=== PATIENT | female | born 1975 | race Caucasian/White ===

== ENCOUNTER 2018-06-16 11:32 | Outpatient (CLI) | payer OTHER ==
--- NOTE | 2018-06-16 13:01 | ULT ---
VENOUS DOPPLER ULTRASOUND OF THE LEFT LOWER EXTREMITY: HISTORY: Left leg pain and edema. TECHNIQUE: Moss scale ultrasound with color flow and spectral Doppler imaging of the deep venous system of the l eft lower extremity was performed. FINDINGS: There is good flow, compression, and augmentation noted in the left common femoral, femoral, deep fem oral, popliteal, posterior tibial, and greater saphenous veins. IMPRESSION: No evidence of deep vein thrombosis in the left lower extremity. POS: C
== END 2018-06-16 11:33 | disposition home or self-care (01) ==
LOC: ULT 11:32
PROVIDERS: ATTEND Family Medicine
DX: M79.662 Pain in left lower leg (principal)

== ENCOUNTER 2018-08-05 09:06 | Outpatient (CLI) | payer OTHER ==
--- NOTE | 2018-08-05 09:57 | MRI ---
EXAM: Left knee MRI without contrast: HISTORY: Left knee effusion, left knee anterior pain COMPARISON: None FINDINGS: Multiplanar, multisequence MRI examination of the knees performed. No evidence for significant joint effusion. Very minimal cartilage thinning. Medial meniscus: Minimal intrasubstance degenerative signal without tear. Lateral meniscus: Minimal intrasubstance degenerative signal without tear. Anterior cruciate ligament:Intact. Posterior cruciate ligament: Intact. Medial collateral ligament complex: Intact. Lateral collateral ligament complex: Intact. Quadriceps and patellar tendons: Intact. Extensor mechanism: Unremarkable. No evidence for acute osteochondral defect or abnormal marrow signal. IMPRESSION: No evidence for significant acute internal derangement of the knee. Very mild cartilage loss. Minimal degenerative intrasubstance signal in medial and lateral menisci without evidence for tear. No significant joint effusion.
== END 2018-08-05 09:07 | disposition home or self-care (01) ==
LOC: BICMRI 09:06
PROVIDERS: ATTEND Family Medicine
DX: M25.462 Effusion, left knee (principal); R93.7 Abnormal findings on diagnostic imaging of other parts of musculoskeletal system; M94.8X6 Other specified disorders of cartilage, lower leg

== ENCOUNTER 2018-10-22 20:07 | Observation (INO) | payer OTHER, SELFPAY ==
--- NOTE | 2018-10-22 20:54 | PDOC.FPRHP ---
- History of Present Illness Chief Complaint: CP and SOB History of Present Illness: Ms. Barrios is a 43yoF who presents as a transfer from [place] for symptoms of chest pain and shortness of breath that started this afternoon around 1500. 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 Endorses diaphoresis and vision changes, mostly blurry. She took mylanta thinking it was GERD and this did not relieve the sx. She left work and went home and laid in bed. After laying down she began having the chest pain described as 6/10, stabbing squeezing pain, that comes and goes, with radiation down to left hand. She describes the pain is a tightness or pressure. It lasts for hours at a time and then is gone for five to ten minutes before returning. Endorses shortness of breath with the episodes. She has had these sx before, they are episodic. She was given nitro, aspirin in the ER. She also got a gram of tylenol, and a shot of morphine, which helped some. She has a high tolerance for medication. She has a hx of chest pain last year, not as bad as this. She also endorses burning lower abdominal pain that has been present x1 week. She has had one episode of diarrhea today. She denies blood in her stool, nausea , vomiting, abnormal discharge or pelvic pain. She denies ever having a stress test or cardiac workup. - Allergies/Adverse Reactions Allergies Allergy/AdvReac Type Severity Reaction Status Date / Time acetaminophen [From Percocet] Allergy Verified 10/22/18 22:39 naproxen Allergy Verified 10/22/18 22:39 oxycodone [From Percocet] Allergy Verified 10/22/18 22:39 - Home Medications Medication Instructions Recorded Confirmed Type No Known 10/22/18 10/22/18 History - History PMHx: Pulmonary stenosis, asthma, hypoglycemia, epileptic tendencies, GERD, PSHx: knee, hysterectomy, chantal, tubal, tonsils, carpal tunnel FHx: grandfather-cancer, grandmother-[place], in 60s Social:smokes 1/2 ppd for 25+ years, denies alcohol, denies drug use - Review of Systems General: reports: fatigue. denies: fever/chills, weight/appetite/sleep changes , night sweats Eyes: denies: eye pain, vision changes ENT: denies: nasal congestion, rhinorrhea Respiratory: denies: cough, congestion, shortness of breath Cardiovascular: reports: chest pain. denies: palpitation, edema Gastrointestinal: reports: diarrhea, abdominal pain (intestines feel like they are on fire lower abdomen, burning pain in lower abdomin). denies: nausea, vomiting Genitourinary: denies: incontinence, dysuria Skin: denies: rashes, lesions Musculoskeletal: reports: other (bodyaches). denies: pain, tenderness Neurological: reports: numbness (center of back, left hand numb and tingling), other (headache after nitro). denies: syncope, seizure Psychological: reports: anxiety, depression (history of it) - Vital signs BP: [] HR: [] RR: [] Tmax: [] Pox: []% on [] Wt: [] - Physical Exam Constitutional: NAD, awake, alert and oriented HEENT: normocephalic and atraumatic, PERRLA, EOMI, grossly normal vision, grossly normal hearing, MMM Neck: supple, FROM -Chest: tender to palpation at the costochondral junction on the left side of the sternum Heart: RRR, normal S1/S2, no murmurs/rubs/gallops, pulses present -Heart: distant heart sounds Lungs: CTAB, no respiratory distress, good air movement, no rales/rhonchi Abdomen: soft, non-tender, bowel sounds present Musculoskeletal: normal structure, normal tone Neurological: no focal deficit, normal sensation Skin: no rash/lesions, good turgor, capillary refill <2 seconds Heme/Lymphatic: no unusual bruising or bleeding, no purpura Psychiatric: normal mood and affect, good judgment and insight FMR H&P: Results - Labs Lab results: Laboratory Tests 10/22/18 10/22/18 10/22/18 17:25 17:25 17:43 WBC 8.0 RBC 4.38 Hgb 13.2 Hct 41.2 MCV 93.9 Plt Count 357 D-Dimer 0.33 Sodium 140 Potassium 3.8 Chloride 106 Carbon Dioxide 23 BUN 15 Creatinine 0.74 Estimated GFR (MDRD) 85 AST 26 ALT 32 - EKG Interpretation EKG: Normal ECG FMR H&P: A/P - Problem List (1) Chest pain, atypical Current Visit: Yes Status: Acute Code(s): R07.89 - OTHER CHEST PAIN (2) Asthma Current Visit: Yes Status: Acute Code(s): J45.909 - UNSPECIFIED ASTHMA, UNCOMPLICATED - Plan 1. Atypical chest pain * ACS Rule out. Has not had cardiac work up and has heart score of 3 and family history. Will proceed with stress test. * The pain is reproducible on exam, she is tender to palpation at the costochondral junction. Likely MSK in nature. * Toradol for pain control * Nitro if she develops chest pain. * Three negative troponins. * Will risk stratify with TSH, fasting lipid panel, and A1C in AM labs. 2. Asthma, stable * no wheezing on exam. will reassess if she complains of wheezing. Disposition/LOS: Dispo: Obs <48hours Code: Full VTE: SCDs FMR H&P: Upper Level - Pertinent history 43 yo f presents with chest pain, described as substernal, with some shortness of breath, and n/v, with radiation to left hand, also complained of body aches. - Pertinent findings Vitals: BP: 126/80 HR:64 O2sat: 100%RA RR:18 PE: NAD Distant heart sounds CTAB no edema bilateral lower extremiteis a&ox3 Labs: trop <.01 EKG: NSR no ST changes - Plan Date/Time: 10/22/182051 43 yo f admitted for atypical chest pain. #Atypical chest pain- -reproducible on exam and suspect chostochondritis, gave 15mg IV toradol -will trend troponins, and repeat EKG if chest pain recurs. -Heart score of 3. Since strong smoking history and family hx of cardiac disease , will proceed with a stress test. See equine internship note for chronic conditions. Magalys Baxter MD, PGY-3
[2018-10-22] MEDS ORDERED: Morphine 4 MG/ML VIAL ONE (20:56)
[2018-10-22 21:23] LABS: Troponin I Less than 0.010 ng/mL (< 0.028)
[2018-10-22] MEDS ORDERED: Aspirin Chewable 81 MG TAB ONE (22:08)
[2018-10-22 22:50] VITALS: BMI 32.0
[2018-10-22] MEDS ORDERED: Sodium Chloride 0.9% 1,000 ML IV SCH (22:50)
[2018-10-22] MEDS ORDERED: Ondansetron PF 4 MG/2 ML Vial IVP PRN (22:50)
[2018-10-22] MEDS ORDERED: Ondansetron ODT 4 MG TAB SL PRN (22:50)
[2018-10-22] MEDS ORDERED: Ketorolac Tromethamine 30 MG/ML VIAL IVP PRN ×2 (23:34→23:55)
[2018-10-22] MEDS ORDERED: Nitroglycerin 0.4 MG TAB (25 Tab Bottle) PO PRN (23:43)
[2018-10-22] MEDS ORDERED: Acetaminophen 325 MG TAB PO PRN (23:43)
[2018-10-22] MEDS ORDERED: Calcium Carbonate 500 MG ChewTAB PO PRN (23:43)
[2018-10-22] MEDS ORDERED: Nicotine 14 MG PATCH TD SCH (23:45)
[2018-10-23 00:20] LABS: Troponin I Less than 0.010 ng/mL (< 0.028)
[2018-10-23 06:23] LABS: Hemoglobin A1c 5.3 % (4.0-6.0)
[2018-10-23 06:40] LABS: Cardiac Risk 4.8 (Less than 4.5)
[2018-10-23] MEDS ORDERED: Aspirin 325 mg Enteric Coated Tablet PO SCH ×2 (09:00)
[2018-10-23] MEDS ORDERED: hydrOXYzine Pamoate 25 mg Capsule PO PRN (09:06)
[2018-10-23] MEDS ORDERED: Regadenoson 0.4 MG/5 ML SYRINGE ONE (09:52)
--- NOTE | 2018-10-23 10:59 | HP ---
HISTORY OF PRESENT ILLNESS: I have examined the patient. I have discussed the case with Dr. Donya Quiroga and agree with her assessment and plan. Briefly, Ms. Barrios is a 43-year-old lady with no prior history of CAD, who presented from transfer from [place]. At that time, she describes some chest pain and shortness of breath that started yesterday afternoon. She was also feeling dizzy, lightheaded, and weak. She had a heart score of 4 and has been admitted for further evaluation. PHYSICAL EXAMINATION: VITAL SIGNS: Her vital signs are stable. She is awake, alert, in no distress. EAR, NOSE, AND THROAT: No erythema or exudate. NECK: Supple. CARDIAC: Heart rhythm, regular. No gallop or murmur noted. Some tenderness to palpation of the left costochondral junction. LUNGS: Clear but diminished breath sounds. No rales or wheezes. No distress. ABDOMEN: Flat, soft. No guarding or rebound. NEUROLOGIC: No focal deficits. LABORATORY DATA: Her triglycerides are 201, cholesterol 148, LDL 77, HDL 31. Her troponins are less than 0.01 x2, and her EKG shows no acute ischemic changes. ASSESSMENT: Chest pain. PLAN: Admit, stress Myoview and proceed. Job ID: [id number]
--- NOTE | 2018-10-23 11:42 | PDOC.FM ---
- Objective Vital Signs & Weight: Vital Signs (12 hours) Temp Pulse Resp BP Pulse Ox 10/23/18 07:34 97.5 F L 70 20 108/63 96 10/23/18 04:27 97.5 F L 64 16 92/53 L 93 L 10/22/18 23:43 95 Weight Weight 78 kg
--- NOTE | 2018-10-23 11:44 | PDOC.FM ---
- Subjective Subjective: Pt resting in bed. Reports still having some tightness and cramping in her chest. Reports medicine last night helped but has not taken any this morning. Denies any fever or chills. Denies any SOB. Denies any leg swelling. - Objective MAR Reviewed: Yes Vital Signs & Weight: Vital Signs (12 hours) Temp Pulse Resp BP Pulse Ox 10/23/18 07:34 97.5 F L 70 20 108/63 96 10/23/18 04:27 97.5 F L 64 16 92/53 L 93 L Weight Weight 78 kg Additional Labs: Troponins have trended negative below .01. EKG Reviewed by me: Yes (Sinus Rhythm on tele monitor) Radiology Reviewed by me: Yes (No new imaging to review) Phys Exam - Physical Examination Constitutional: NAD HEENT: PERRLA, moist MMs Neck: no nodes, no JVD, supple, full ROM Respiratory: no wheezing, no rales, no rhonchi, clear to auscultation bilateral Cardiovascular: RRR, no significant murmur Gastrointestinal: soft, non-tender, no distention, positive bowel sounds Musculoskeletal: no edema, pulses present Neurological: non-focal, normal sensation, moves all 4 limbs Lymphatic: no nodes Psychiatric: normal affect, A&O x 3 Skin: no rash, normal turgor, cap refill <2 seconds Dx/Plan (1) Asthma Code(s): J45.909 - UNSPECIFIED ASTHMA, UNCOMPLICATED Status: Acute (2) Chest pain, atypical Code(s): R07.89 - OTHER CHEST PAIN Status: Acute - Plan Plan: 1. Atypical chest pain * ACS Rule out. Has not had cardiac work up and has heart score of 3 and family history. Will proceed with stress test. * Toradol helped for pain last night. Will continue with medication today. Pain reproducible on palpation. Possibly muscle strain or chostochondritis * Nitro if she develops chest pain. * TSH, FLP wnl 2. Asthma, stable * no wheezing on exam. will reassess if she complains of wheezing.
[2018-10-23 15:21] VITALS: BP 98/57; TEMP 97.4
--- NOTE | 2018-10-23 15:36 | NM ---
EXAM: NUCLEAR MEDICINE CARDIAC SPECT WITH EF AND WALL MOTION: 10/23/18 HISTORY: Chest pain, asthma, tobacco use. This is a Lexiscan study. The patient was injected with 30 millicuries technetium 99m Sestamibi intravenously for stress images and patient was injected with 11 millicuries technetium 99m Sestamibi intravenously for resting imag es. Multiple SPECT images in the short axis, vertical long axis, and horizontal long axis demonstrates no scan evidence for infarct or ischemia. TID 1.10. LHR 0.36. EDV 86 mL. EF 70%. MYOCARDIAL PERFUSION WALL MOTION: Wall motion is normal. IMPRESSION: Unremarkable cardiac SPECT with EF and wall motion. No scan evidence for infarct or ischemia. POS: DAVID
[2018-10-23] MEDS ORDERED: Lidocaine 2% Viscous Solution 20 ML, Aluminum & Magnesium Hydroxide 30 ML, Donnatal Eli... SSW SCH (15:45)
[2018-10-23] MEDS ORDERED: traMADol HCl 50 MG TAB PO SCH (15:45)
== END 2018-10-23 17:04 | disposition home or self-care (01) ==
LOC: ERS 20:07 → 2SW 22:14
PROVIDERS: ADMIT Family Medicine; ATTEND Family Medicine
DX: R07.2 Precordial pain (principal); J45.909 Unspecified asthma, uncomplicated; Q25.6 Stenosis of pulmonary artery; K21.9 Gastro-esophageal reflux disease without esophagitis; F17.210 Nicotine dependence, cigarettes, uncomplicated; Z88.5 Allergy status to narcotic agent; Z88.6 Allergy status to analgesic agent
CPT/HCPCS: 36415; 78452; 80061; 83036; 84443; 93005; 93017; 94760; 96361; 96374; 96375; 96376; 99406; A9500; G0378; J1885; J2270; J2785; Q0177